=== PATIENT | male | born 1945 | race Caucasian/White ===

== ENCOUNTER 2018-06-28 12:09 | Outpatient (CLI) | payer MEDICARE ==
--- NOTE | 2018-06-28 14:34 | CT ---
CT LEFT SHOULDER WITHOUT COTNRAST: HISTORY: M75.42, impingement syndrome of the left shoulder. COMPARISON: None. FINDINGS: BONES: There is cortical erosion of the footprint of the supraspinatus tendon and chronic rotator cuff arthr opathy. There is a type III acromial to subacromial spur, large. There is narrowing of the subacrom ial space approximately 3 mm with chronic undersurface articulation of the humeral head with the acro mion. Moderate-sized osteophyte formation of the glenoid. Acromioclavicular alignment is normal. N o acute fracture. There is likely a full-thickness rupture of the supraspinatus tendon from the footprint with fibers r etracted to the glenohumeral joint. Greater than 50% muscle atrophy. There is likely moderate tendi nosis of the infraspinatus tendon with large intratendinous calcifications of the posterior fibers. This calcification measures 1.4 x 0.8 cm. The deltoid musculature is normal. The visualized ribs are intact. Lung parenchyma is normal. IMPRESSION: 1. 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 2. Type III acromion with large subacromial keel osteophyte with narrowed subacromial space to appro ximately 2 mm with likely chronic articulation of the superior humeral head with the acromion. 3. Moderate-sized circumferential glenoid osteophytes. POS: [facility]
== END 2018-06-28 12:10 | disposition home or self-care (01) ==
LOC: BICCT 12:09
PROVIDERS: ATTEND Orthopaedic Surgery
DX: M75.42 Impingement syndrome of left shoulder (principal); M25.712 Osteophyte, left shoulder

== ENCOUNTER 2018-07-04 10:14 | Outpatient (CLI) | payer MEDICARE ==
--- NOTE | 2018-07-04 14:15 | ULT ---
LEFT SHOULDER ULTRASOUND: Date: 07/04/18 HISTORY: M75.42. COMPARISON: CT dated 06/28/18. FINDINGS: Real-time Vences scale evaluation of the left shoulder was performed by the radiologist. Biceps Tendon: Full thickness rupture of the extraarticular biceps tendon. Supraspinatus Tendon: Full thickness rupture of the supraspinatus tendon from the footprint. Infraspinatus Tendon: Moderate tendinosis with large indwelling calcification. Subscapularis: Mild deep undersurface partial tearing. No full thickness rupture. IMPRESSION: 1. Full thickness tear of the supraspinatus tendon from the footprint. 2. Rupture of the extraarticular biceps tendon. POS: [facility]
== END 2018-07-04 10:15 | disposition home or self-care (01) ==
LOC: ULT 10:14
PROVIDERS: ATTEND Orthopaedic Surgery
DX: M75.42 Impingement syndrome of left shoulder (principal); M75.122 Complete rotator cuff tear or rupture of left shoulder, not specified as traumatic; S46.212A Strain of muscle, fascia and tendon of other parts of biceps, left arm, initial encounter
CPT/HCPCS: 76999

== ENCOUNTER 2018-09-23 10:15 | Emergency (ER) | payer MEDICARE ==
--- NOTE | 2018-09-23 10:50 | RAD ---
THREE VIEWS LEFT FOOT: COMPARISON: None. HISTORY: Left foot pain for 1 week. FINDINGS: Three views left foot show no evidence of acute fracture or dislocation. Moderate diffuse soft tissu e swelling is seen. No degenerative changes are seen. IMPRESSION: No evidence of acute osseous abnormality. POS: [facility]
[2018-09-23] MEDS ORDERED: Lidocaine 1% w/Epinephrine 1:100K 20 ML VIAL ONE (11:53)
[2018-09-23] MEDS ORDERED: Clindamycin/D5W 600 mg/50 ml Premix Bag ONE (12:17)
[2018-09-23] MEDS ORDERED: Clindamycin/D5W 900 mg/50 ml Premix Bag ONE (12:19)
== END 2018-09-23 14:20 | disposition home or self-care (01) ==
LOC: ERS 10:15
DX: L03.116 Cellulitis of left lower limb (principal); I25.10 Atherosclerotic heart disease of native coronary artery without angina pectoris; I50.9 Heart failure, unspecified; E78.5 Hyperlipidemia, unspecified
CPT/HCPCS: 10060; 96365; J2001; J3490

== ENCOUNTER 2018-09-25 15:29 | Emergency (ER) | payer MEDICARE, OTHER ==
[2018-09-25 16:53] LABS: #Basophils 0.1 thou/uL (0.0-0.2); #Eosinphils 0.3 thou/uL (0.0-0.7); #Lymphocytes 1.5 thou/uL (1.20-3.40); #Monocytes 0.7 thou/uL (0.11-0.59); #Neutrophils 4.9 thou/uL (1.40-6.50); %Basophils 0.7 % (0.0-1.0); %Eosinophils 3.6 % (0.0-10.0); %Lymphocytes 20.2 % (21.0-51.0); %Monocytes 9.7 % (0.0-10.0); %Neutrophils 65.9 % (42.0-75.0); Hemoglobin 13.2 g/dL (14.0-18.0); Mean Corpuscular HGB CONC 32.1 g/dL (32.0-36.0); Mean Corpuscular Hemoglobin 28.7 pg (27.0-31.0); Mean Corpuscular Volume 89.5 fL (78.0-98.0); Mean Platelet Volume 7.5 fL (7.4-10.4); Platelet Count 218 thou/uL (130-400); RBC Distribution Width 12.8 % (11.5-14.5); Red Blood Cell (RBC) Count 4.61 mill/uL (4.70-6.10); White Blood Cell (WBC) Count 7.5 thou/uL (4.8-10.8)
[2018-09-25 17:32] LABS: AST (SGOT) 20 U/L (5-34); Alkaline Phosphatase 106 U/L (40-150); Anion Gap 13 mmol/L (10-20); BUN (Urea Nitrogen) 27 mg/dL (8.4-25.7); Bilirubin, Total 0.4 mg/dL (0.2-1.2); Calc. Creatinine Clearance 0 mL/min (70-130); Calcium 9.2 mg/dL (7.8-10.44); Carbon Dioxide 25 mmol/L (23-31); Chloride 106 mmol/L (98-107); Estimated GFR-MDRD 34; Glucose 147 mg/dL (83-110); Sodium 140 mmol/L (136-145)
[2018-09-25 17:44] LABS: ALT (SGPT) 20 U/L (8-55)
== END 2018-09-25 17:59 | disposition home or self-care (01) ==
LOC: ERS 15:29
DX: Z48.817 Encounter for surgical aftercare following surgery on the skin and subcutaneous tissue (principal); M10.9 Gout, unspecified; I25.10 Atherosclerotic heart disease of native coronary artery without angina pectoris; E78.5 Hyperlipidemia, unspecified; I50.9 Heart failure, unspecified
CPT/HCPCS: 36415; 80053; 83605; 85025; 87040; 99283

== ENCOUNTER 2021-08-03 11:50 | Emergency (ER) | payer MEDICARE | END 2021-08-03 12:57 | disposition left against medical advice (07) | LOC: ERS 11:50 | DX: Z53.21 Procedure and treatment not carried out due to patient leaving prior to being seen by health care provider (principal) ==